=== PATIENT | male | born 1975 | race Caucasian/White ===

== ENCOUNTER 2018-04-08 18:27 | Emergency (ER) | payer BC ==
[2018-04-08 18:40] VITALS: RESP 16; TEMP 97.2
[2018-04-08] MEDS: SODIUM CHLORIDE 0.9% FLUSH 10 ML SOL IV PRN ×3 (18:55→19:58)
[2018-04-08] MEDS ORDERED: LABETALOL HYDROCHLORIDE 5 MG/ML SOL IV ONE ×2 (18:59→19:01)
[2018-04-08 19:04] LABS: BASOPHILS % (AUTO) 1 % (0-3); EOSINOPHILS % (AUTO) 3 % (0-9); HEMATOCRIT 45 % (39-53); HEMOGLOBIN 15.5 gm/dl (13.5-17.7); LYMPHOCYTES % (AUTO) 26.8 % (10-50); MEAN CORPUSCULAR HEMOGLOBIN 30.7 pg (27.0-32.0); MEAN CORPUSCULAR HGB CONC 34.6 gm/dl (32.0-36.0); MEAN CORPUSCULAR VOLUME 89 fL (80-100); MONOCYTES % (AUTO) 8.6 % (0-12); NEUTROPHILS % (AUTO) 60.3 % (37-80)
[2018-04-08 19:10] LABS: CALCIUM 9.1 mg/dl (8.5-10.1); CARBON DIOXIDE 30.6 mEq/L (21-32); CREATININE 0.89 mg/dl (0.80-1.30)
[2018-04-08] MEDS ORDERED: HYDRALAZINE HYDROCHLORIDE 20 MG/ML SOL IV ONE (19:54)
[2018-04-08] MEDS ORDERED: HYDRALAZINE HYDROCHLORIDE 20 MG/ML SOL ONE (19:55)
[2018-04-08 20:50] VITALS: PULSE 92
[2018-04-08] MEDS ORDERED: LORAZEPAM 2 MG/ML 10ML MDV 2 MG/ML VIAL IV STA (20:53)
[2018-04-08] MEDS ORDERED: LORAZEPAM 2 MG/ML SOL ONE (20:54)
[2018-04-08 21:28] VITALS: BP 151/91; O2SAT 97
== END 2018-04-08 21:51 | disposition home or self-care (01) ==
LOC: ED 18:27
DX: I16.9 Hypertensive crisis, unspecified (principal)
CPT/HCPCS: 80048; 84484; 85025; 93005; 96374; 96375; 99283; 99285; J0360; J2060; J3490